=== PATIENT | female | born 1950 | race Caucasian/White ===

== ENCOUNTER → 2016-12-01 | Outpatient (CLI) | payer MEDICARE ==
--- NOTE | 2016-12-01 18:38 | PCVCIMAG ---
EXAM: RIGHT LOWER EXTREMITY ARTERIAL DUPLEX INDICATION: Peripheral Arterial Disease. Leg pain. Ischemic right second toe. FINDINGS: Right Leg: Satisfactory arterial waveforms in the common and profunda femoral arteries and in the superficial femoral and popliteal arteries without significant stenosis. There is occlusion throughout the anterior and posterior tibial arteries. Good arterial waveforms without significant stenosis in the peroneal artery. Dorsalis pedis has satisfactory arterial waveforms. 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 No other flow-limiting stenoses seen in the right lower extremity. LOC:[id number]
--- NOTE | 2016-12-01 18:41 | PCVCIMAG ---
EXAM: NONINVASIVE ARTERIAL EXAMINATION OF THE RIGHT LOWER EXTREMITIES INCLUDING PULSE VOLUME RECORDINGS AND DOPPLER WAVEFORMS INDICATION: Peripheral Arterial Disease. Leg pain. FINDINGS: Mild blunting of arterial waveforms in the right first, second, and fourth toes. Good arterial waveforms in the right third and fifth toes. IMPRESSION: Mild blunting of the arterial waveforms in the right first, second, and fourth toes. Please see today's arterial duplex dictation. LOC:[id number]
== END | disposition home or self-care (01) ==
LOC: PCVCIMAG 15:03
PROVIDERS: ATTEND Internal Medicine Cardiovascular Disease
DX: I77.1 Stricture of artery (principal); I70.238 Atherosclerosis of native arteries of right leg with ulceration of other part of lower leg
CPT/HCPCS: 93922; 93926